=== PATIENT | female | born 1985 | race Caucasian/White ===

== ENCOUNTER 2020-05-06 16:19 | Outpatient (CLI) | payer MEDICAID ==
[~2020-05-06] VITALS: Ht 144.8 cm; Wt 51.7 kg
[2020-05-06 17:49] VITALS: BP 172/90; Ht 144.8 cm; Wt 51.7 kg
[2020-05-06 18:03] LABS: HEMATOCRIT 35.1 % (36.0-48.0); HEMOGLOBIN 11.2 g/dL (12-16); MCH 26.5 pg (26.0-34.0); MCHC 31.9 g/dL (31.0-37.0); MCV 83.2 fL (80.0-100.0); MEAN PLATELET VOLUME 9.9 fL (7.4-10.4); RBC 4.22 10x6/uL (4.00-5.40); RDW 14.1 % (11.5-14.5); WBC 17.3 10x3/uL (4.8-10.8)
[2020-05-06 18:16] LABS: CALC OSMOLALITY 268 mosm/kg (275-300); CALCIUM 8.6 mg/dL (8.5-10.1); CARBON DIOXIDE 22.6 mmol/L (21.0-32.0); CHLORIDE - SERUM 102 mmol/L (98-107); CREATININE - SERUM 0.8 mg/dL (0.6-1.3); GLUCOSE 88 mg/dL (74-106); POTASSIUM - SERUM 3.9 mmol/L (3.5-5.1); SODIUM 136 mmol/L (136-145); UREA NITROGEN 6 mg/dL (7-18); eGFR NON AFRICAN AMERICAN 87 mL/min (90-120)
[2020-05-06 18:21] LABS: BILIRUBIN NEGATIVE (NEGATIVE); GLUCOSE NEGATIVE (NEGATIVE); KETONE NEGATIVE (NEGATIVE); NITRITE NEGATIVE (NEGATIVE); UROBILINOGEN NORMAL (NORMAL)
[2020-05-06 18:24] LABS: UDS - AMPHET NEGATIVE QUAL (NEGATIVE); UDS - BARB NEGATIVE QUAL (NEGATIVE); UDS - BENZO NEGATIVE QUAL (NEGATIVE); UDS - COCAINE NEGATIVE QUAL (NEGATIVE); UDS - OPIATE NEGATIVE QUAL (NEGATIVE); UDS - PCP NEGATIVE QUAL (NEGATIVE); UDS - THC POSITIVE QUAL (NEGATIVE)
[2020-05-06 18:27] LABS: ALBUMIN 2.8 g/dL (3.4-5.0); ALKALINE PHOSPHATASE 199 U/L (30-120); ALT (SGPT) 17 U/L (10-68); BILIRUBIN - DIRECT 0.05 mg/dL (0.00-0.30); BILIRUBIN - INDIRECT 0.17 mg/dL (0.00-1.00); BILIRUBIN - TOTAL 0.22 mg/dL (0.2-1.3); PROTEIN - SERUM 7.1 g/dL (6.4-8.2); URIC ACID 3.9 mg/dL (2.6-7.2)
--- NOTE | 2020-05-06 20:29 | NUR ---
DR. GUAJARDO NOTIFIED AMND REVIEWED PATIENT'S BEHAVIOR AND ASSESSMENT IS A LOW RISK. DR. GUAJARDO STATED TO GIVE RESOURCES TO PATIENT AT TIME OF DISCHARGE. NO FURTHER ORDERS AT THIS TIME. RESOURCES REVIEWED WITH PATIENT AND SHE VERBALIZES UNDERSTANDING.
[2020-05-08 06:09] LABS: RAPID PLASMA REAGIN Non Reactive (Non Reactive)
== END 2020-05-07 20:19 | disposition home or self-care (01) ==
LOC: D.LDO 16:19 → UNDOADMIN 16:19 → D.LD 16:19 → D.LDO 05-07 20:19 → D.LD 05-07 20:19 → EDSTATUS 05-11 07:55
PROVIDERS: ATTEND Obstetrics & Gynecology
DX: O36.5930 Maternal care for other known or suspected poor fetal growth, third trimester, not applicable or unspecified (principal); O16.3 Unspecified maternal hypertension, third trimester; Z3A.38 38 weeks gestation of pregnancy; O99.333 Smoking (tobacco) complicating pregnancy, third trimester; Z53.29 Procedure and treatment not carried out because of patient's decision for other reasons

== ENCOUNTER 2020-05-13 14:35 | Inpatient (IN) | payer MEDICAID ==
[~2020-05-13] VITALS: Ht 144.8 cm; Wt 51.7 kg
[2020-05-13 15:13] LABS: HEMATOCRIT 39.1 % (36.0-48.0); HEMOGLOBIN 12.6 g/dL (12-16); MCH 26.4 pg (26.0-34.0); MCHC 32.2 g/dL (31.0-37.0); MCV 81.8 fL (80.0-100.0); RBC 4.78 10x6/uL (4.00-5.40); RDW 14.3 % (11.5-14.5); WBC 25.4 10x3/uL (4.8-10.8)
[2020-05-13 16:39] VITALS: BP 158/72; Ht 144.8 cm; Wt 51.7 kg
[2020-05-13 17:15] LABS: UDS - AMPHET NEGATIVE QUAL (NEGATIVE); UDS - BARB NEGATIVE QUAL (NEGATIVE); UDS - BENZO NEGATIVE QUAL (NEGATIVE); UDS - COCAINE NEGATIVE QUAL (NEGATIVE); UDS - OPIATE NEGATIVE QUAL (NEGATIVE); UDS - PCP NEGATIVE QUAL (NEGATIVE); UDS - THC POSITIVE QUAL (NEGATIVE)
[2020-05-13 19:59] LABS: APTT 31.7 SECONDS (22.8-39.4); INR 0.91 (0.85-1.17); PROTIME 12.2 SECONDS (11.6-15.0)
[2020-05-13 20:13] LABS: CALC OSMOLALITY 264 mosm/kg (275-300); CALCIUM 8.1 mg/dL (8.5-10.1); CARBON DIOXIDE 22.2 mmol/L (21.0-32.0); CHLORIDE - SERUM 101 mmol/L (98-107); CREATININE - SERUM 0.8 mg/dL (0.6-1.3); GLUCOSE 111 mg/dL (74-106); POTASSIUM - SERUM 3.6 mmol/L (3.5-5.1); SODIUM 133 mmol/L (136-145); UREA NITROGEN 6 mg/dL (7-18); eGFR NON AFRICAN AMERICAN 87 mL/min (90-120)
[2020-05-13 20:20] LABS: ALT (SGPT) 11 U/L (10-68); URIC ACID 5.1 mg/dL (2.6-7.2)
[2020-05-14 05:10] LABS: RAPID PLASMA REAGIN Non Reactive (Non Reactive)
--- NOTE | 2020-05-14 06:08 | NUR ---
PATIENT ASSISTED TO 1218 WITH INFANT IN OPEN CRIB. PATIENT DENIES PAIN. SMALL AMOUT OF LOCHIA NOTED TO PERIPAD. ORANGE JUICE PROVIDED AT PATIENT REQUEST. BED IN LOWEST POSITION CALL LIGHT IN REACH.
[2020-05-14 07:59] LABS: HEMOGLOBIN 10.5 g/dL (12-16); MCH 26.1 pg (26.0-34.0); MCHC 31.8 g/dL (31.0-37.0); MCV 81.9 fL (80.0-100.0); PLATELET COUNT 271 10x3/uL (130-400); RBC 4.03 10x6/uL (4.00-5.40); RDW 14.5 % (11.5-14.5); WBC 22.2 10x3/uL (4.8-10.8)
[2020-05-14 08:00] VITALS: BP 117/66
--- NOTE | 2020-05-14 08:00 | NUR ---
AM ASSESSMENT COMPLETED CHARTED TO FLOWSHEET, FUNDUS FIRM AT U/1 WITH SCANT/LIGHT BLEEDING NOTED. SHE DENIES CLOTS WITH VOIDS. SALINE LOCK TO RIGHT HAND, PT ASK WHEN THIS CAN BE REMOVED AND UNDERSTANDS WAITING ON LABS FROM THIS AM. RATES PAIN AT 0/10, IN CRIB AT BEDSIDE. CALL LIGHT IN REACH WITH SIDE RAILS UP X 2.
--- NOTE | 2020-05-14 10:30 | NUR ---
SMALL ORANGE JUICE REQUESTED, RATES PAIN AT 0/10. SALINE LOCK REMOVED INTACT FROM RIGHT HAND DUE TO PT COMPLAINT. NO OTHER NEEDS AT THIS TIME.
[2020-05-14 11:40] LABS: LYMPHOCYTES 16 % (15-50); MONOCYTES 15 % (2-11); NEUTROPHILS 69 % (40-80); PLATELET ESTIMATE NORMAL; ROULEAUX OCC
--- NOTE | 2020-05-14 11:52 | NUR ---
PT CONTINUE TO RATE PAIN AT 0/10, LARGE ICE WATER REQUESTED. CALL LIGHT IN REACH.
--- NOTE | 2020-05-14 12:34 | NUR ---
PT CALLS OUT ASKING FOR PAIN MED, TYLENOL GIVEN SCANNED TO EMAR. RATES AT 5/10 AND UNDERSTANDS THAT IF STILL HURTING WHEN REASSEMENT IS DONE THAN WOULD TRY TORDAL. NO OTHER NEEDS AT THIS TIME.
--- NOTE | 2020-05-14 13:30 | NUR ---
PAIN REASSESSMENT, PT RATES AT 0/10 AT THIS TIME AND DENIES NEEDS.
--- NOTE | 2020-05-14 15:53 | NUR ---
PT BONDING WITH INFANT, RATES PAIN AT 6/10 AND IS AGREEABLE TO PAIN MED. REQUEST A SPRITE TO DRINK.
--- NOTE | 2020-05-14 16:04 | NUR ---
TORDAL GIVEN FOR PAIN OF 6/10. PT DENIES OTHER NEEDS AT THIS TIME, CALL LIGHT IN REACH, IN CRIB AT BEDSIDE.
--- NOTE | 2020-05-14 17:00 | NUR ---
PAIN REASSESSMENT COMPLETED, SHE RATES PAIN AT 0/10 AT THIS TIME. DENIES NEEDS. CALL LIGHT IN REACH WITH AT BEDSIDE.
--- NOTE | 2020-05-14 19:37 | NUR ---
PM ROUNDS MADE, PT HOLDING , INFORMED PT THAT I WILL BE BACK SHORTLY TO DO ASSESSMENT, PT VERBALIZES UNDERSTANDING, REQUESTED AND SERVED SPRITE, DENIES FURTHER NEEDS OR PAIN AT THIS TIME
[2020-05-14 20:15] VITALS: BP 113/65
--- NOTE | 2020-05-14 20:15 | NUR ---
ASSESSMENT PER FLOW SHEET, VS OBTAINED, FF, ML, U/1, PT REPORTS LITE BLEEDING WITH 1 SMAL CLOT THIS MORNING, PT REPORTS FLATUS, BM TODAY, AND VOIDING WITH NO DIFFICULTY, PT REQUESTS TO TAKE SHOWER, INFORMED PT THAT SOON EVS BRINGS TOWELS, I WILL BRING THEM IN TO HER, PT VERBALIZES UNDERSTANDING, DENIES FURTHER NEEDS
--- NOTE | 2020-05-14 21:03 | NUR ---
PT HOLDING INFANT, TOWELS, WASH CLOTHS, GOWN, AND SOAP PROVIDED, INFORMED PT TO USE CALL LIGHT WHEN READY TO TAKE A SHOWER, AND THAT I WOULD CHANGE HER BEDDING, PT VERBALIZES UNDERSTANDING, DENIES FURTHER NEEDS OR PAIN AT THIS TIME
--- NOTE | 2020-05-14 21:28 | NUR ---
PT VISITOR SERVICES ASSISTANT LIGHT, UP TO SHOWER, THIS RN TO ROOM, COMPLETE BEDDING CHANGE DONE
--- NOTE | 2020-05-14 22:19 | NUR ---
PT RESTAURANT ASSOCIATE LIGHT, PT HOLDING , C/O CRAMPING, ADM TORADOL PO PER MD ORDERS, SEE EMAR, PT REQUESTED AND PROVIDED LATONIA SOOD, DENIES FURTHER NEEDS
--- NOTE | 2020-05-15 00:10 | NUR ---
PT HOLDING INFANT, DENIES NEEDS OR PAIN AT THIS TIME
--- NOTE | 2020-05-15 02:12 | NUR ---
PT HOLDING INFANT, C/O SLIGHT CRAMPING, INFORMED PT THAT IT WAS NOT TIME FOR THE TORADOL, OFFERED TYLENOL, PT REFUSES, REQUESTED AND SERVED SPRITE, DENIES FURTHER NEEDS
--- NOTE | 2020-05-15 04:30 | NUR ---
UPON ENTERING ROOM, PT IS RESTING WITH EYES CLOSED, ON BREAST, PT AROUSES TO SOFT VERBAL STIMULATION, PT INST ON NOT SLEEPING WITH INFANT IN BED WITH HER, PT VERBALIZES UNDERSTANDING, DENIES NEEDS AT THIS TIME
--- NOTE | 2020-05-15 06:04 | NUR ---
PT TRAFFIC RATE CLERK LIGHT, C/O CRAMPING, ADM TORADOL PO PER MD ORDERS, SEE EMAR, WITH FRESH H20, PT DENIES FURTHER NEEDS
[2020-05-15 08:06] VITALS: BP 117/60
--- NOTE | 2020-05-15 08:07 | NUR ---
AM ASSESSMENT COMPLETED CHARTED TO FLOWSHEET. PT RATES PAIN AT 0/10, TO BREAST AT THIS TIME. VSS, PT DENIES CLOTS WITH VOIDS AND LIGHT BLEEDING NOTED TO JARAD PAD, FUNDUS FIRM AT U/U. DENIES NEEDS AT THIS TIME. CALL LIGHT IN REACH.
--- NOTE | 2020-05-15 10:15 | NUR ---
LARGE CUP OF ICE WATER ASKED FOR. RATES PAIN AT 0/10 AT THIS TIME. DENIES ANY OTHER NEEDS. CALL LIGHT IN REACH.
--- NOTE | 2020-05-15 11:31 | NUR ---
DHS SOFTWOOD FALLER AT BEDSIDE TALKING WITH PATIENT.
--- NOTE | 2020-05-15 12:30 | NUR ---
PER DR TOBAR REQUEST VERIFIED WITH PT THAT IF SHE WAS TO BE ROOMED IN TODAY SOMEONE WOULD BE ABLE TO [employer] SCIENCE PRACTITIONER HER SCRIPTS FOR HER. SHE STATES HER SISTER WOULD DO THIS. REPORT GIVEN TO DR TOBAR.
--- NOTE | 2020-05-15 12:55 | NUR ---
DIETARY NOTIFIED OF PT REQUEST FOR ORANGE OR APPLE JUICE.
--- NOTE | 2020-05-15 14:45 | NUR ---
TORDAL GIVEN FOR PT COMPLAINT OF PAIN THAT SHE RATES AT 6/10. PER PATIENT SHE USES THE PHARMACY AT [facility] ON [address]. UNDERSTANDS TO BAGMAN/WOMAN BLOOD PRESSURE MED WHEN SHE GETS DISCHARGED LATER TODAY. NO OTHER NEEDS AT THIS TIME.
[2020-05-15] MEDS ORDERED: PROCARDIA XL60 MG PO (17:45)
--- NOTE | 2020-05-15 18:29 | NUR ---
VERBAL AND WRITTEN DISCHARGE INSTRUCTIONS GONE OVER WITH PT. SHE STATES HER UNDERSTANDING TO PROCARDIA XL FOR BLOOD PRESSURE, ALSO THAT SCRIPT HAS BEEN CALLED IN TO [facility] ON [address]. INFANT IS UNDERGOING CAR SEAT TESTING AT THIS TIME. PT UNDERSTANDS THAT ONCE THIS IS COMPLETED AND HAS BEEN DISCHARGED SHE IS ABLE TO LEAVE. NURSERY NOTIFIED AND WILL TAKE PT OUT TO CAR.
== END 2020-05-15 19:08 | disposition home or self-care (01) | DRG 806 ==
LOC: D.LDO 14:35 → D.LD 14:50 → D.WS 14:50
PROVIDERS: ADMIT Obstetrics & Gynecology; ATTEND Obstetrics & Gynecology
PROC: 10D07Z6 Extraction of Products of Conception, Vacuum, Via Natural or Artificial Opening (ICD-10-PCS; principal; 2020-05-13)
DX: O36.5930 Maternal care for other known or suspected poor fetal growth, third trimester, not applicable or unspecified (principal); O10.92 Unspecified pre-existing hypertension complicating childbirth; Z37.0 Single live birth; Z3A.38 38 weeks gestation of pregnancy; O36.8330 Maternal care for abnormalities of the fetal heart rate or rhythm, third trimester, not applicable or unspecified; O70.0 First degree perineal laceration during delivery